=== PATIENT | male | born 2000 | race Two or more races ===

== ENCOUNTER 2024-04-21 03:15 | Emergency (ER) | payer OTHER ==
[~2024-04-21] VITALS: Ht 188 cm; Wt 84.1 kg
[2024-04-21] MEDS: LIDOCAINE 2% 6 ML JELLY TP ONE (05:59)
[2024-04-21] MEDS: IBUPROFEN 600 MG TABLET PO ONE (06:06)
[2024-04-21] MEDS: PERTUSS(ACELL),DIPH,TET/PF 0.5 ML SYRINGE [ADULT] IM. ONE (06:07)
[2024-04-21] MEDS: LIDOCAINE 1% 10 ML VIAL SQ ONE (06:07)
[2024-04-21] MEDS: BACITRACIN 0.9 GM PACKET OINTMENT TP ONE (06:07)
[2024-04-21] MEDS: LIDOCAINE 2% VISCOUS 15 ML SOLUTION UDCUP PO ONE (06:57)
[2024-04-21] MEDS: AMOX TR/POT CLAV 875 MG/125 MG TABLET PO ONE (06:59)
[2024-04-21 08:06] VITALS: BP 125/65; PULSE 94; RESP 20; TEMP 99.2; O2SAT 97
[2024-04-21] MEDS ORDERED: AMOX-457 PO (08:11)
== END 2024-04-21 08:25 | disposition home or self-care (01) ==
LOC: EMS 03:15
DX: S01.511A Laceration without foreign body of lip, initial encounter (principal); S01.85XA Open bite of other part of head, initial encounter; I10 Essential (primary) hypertension; F12.90 Cannabis use, unspecified, uncomplicated; F17.210 Nicotine dependence, cigarettes, uncomplicated; Z23 Encounter for immunization; W54.0XXA Bitten by dog, initial encounter; Y93.89 Activity, other specified; Y92.89 Other specified places as the place of occurrence of the external cause; Y99.8 Other external cause status
CPT/HCPCS: 40650; 99284; 90715; 90471; J3490